=== PATIENT | female | born 1935 | race Caucasian/White ===

== ENCOUNTER 2019-04-11 13:09 | Emergency (ER) | payer MEDICARE ==
[~2019-04-11] VITALS: Ht 162.6 cm; Wt 45.9 kg
[2019-04-11 13:14] VITALS: BP 107/68
== END 2019-04-11 14:43 | disposition home or self-care (01) ==
LOC: ER 13:09
DX: L60.8 Other nail disorders (principal)
CPT/HCPCS: 99283

== ENCOUNTER 2019-11-28 09:23 | Emergency (ER) | payer MEDICARE ==
[~2019-11-28] VITALS: Ht 167.6 cm; Wt 47.7 kg
[2019-11-28] MEDS ORDERED: diazepam inj 5 MG/ML inj. IV ONE (09:35)
[2019-11-28 09:53] LABS: BASOPHILS % (AUTO) 0.5 % (0-1); EOSINOPHILS % (AUTO) 0.7 % (0-6); HEMOGLOBIN 13.5 g/dl (12.0-16.0); LYMPHOCYTES % (AUTO) 19.5 % (21-51); MEAN CORPUSCULAR HEMOGLOBIN 32.7 PG (27.0-31.0); MEAN CORPUSCULAR HGB CONC 33.7 g/dL (33.0-36.5); MEAN CORPUSCULAR VOLUME 97.2 FL (78-98); MEAN PLATELET VOLUME 7.7 FL (7.4-10.4); MONOCYTES # (AUTO) 0.5 X10'3 (0-0.9); MONOCYTES % (AUTO) 9.2 % (2-12); NEUTROPHILS # (AUTO) 3.5 X10'3 (1.8-7.7); NEUTROPHILS % (AUTO) 70.1 % (42-75); PLATELET COUNT 271 X10'3 (140-440); RED BLOOD COUNT 4.12 X10'6 (4.20-5.60); RED CELL DISTRIBUTION WIDTH 13.8 % (11.5-14.5); WHITE BLOOD COUNT 4.9 X10'3 (4.5-11.0)
[2019-11-28 10:08] LABS: ALANINE AMINOTRANSFERASE 29 U/L (12-78); ALBUMIN 3.7 G/DL (3.4-5.0); ALBUMIN/GLOBULIN RATIO 1.3 (1.1-1.5); ALKALINE PHOSPHATASE 37 IU/L (46-116); ANION GAP 10 (8-16); ASPARTATE AMINO TRANSFERASE 34 U/L (10-37); BILIRUBIN,TOTAL 0.6 MG/DL (0.1-1.0); BLOOD UREA NITROGEN 14 MG/DL (7-18); BUN/CREATININE RATIO 16.7 (6.6-38.0); CHLORIDE 108 MMOL/L (99-107); CREATININE 0.84 MG/DL (0.40-0.90); GLUCOSE 87 MG/DL (70-104); SODIUM 144 MMOL/L (135-145); TOTAL CARBON DIOXIDE 26.5 MMOL/L (24-32); TOTAL PROTEIN 6.5 G/DL (6.4-8.2); eGFR 65 ML/MIN
[2019-11-28 10:51] VITALS: BP 109/65
== END 2019-11-28 10:57 | disposition home or self-care (01) ==
LOC: ER 09:23
DX: R25.2 Cramp and spasm (principal); M54.81 Occipital neuralgia; F17.200 Nicotine dependence, unspecified, uncomplicated; Z85.841 Personal history of malignant neoplasm of brain; Z90.710 Acquired absence of both cervix and uterus
CPT/HCPCS: 36415; 80053; 85025; 96374; 99283; J3360; 99284

== ENCOUNTER 2021-02-22 09:38 | Emergency (ER) | payer MEDICARE ==
[~2021-02-22] VITALS: Ht 165.1 cm; Wt 46.6 kg
[2021-02-22] MEDS ORDERED: TETanus/Pertussis (Acell)/Diphther VAC/PF (Tdap-Adult) 0.5ml syringe IMVAC ONE (10:25)
[2021-02-22] MEDS ORDERED: LIDOcaine 1% W/epiNEPHrine 1:200,000 10ml vial IJ ONE (10:25)
--- NOTE | 2021-02-22 10:40 | NUR ---
To CT at this time via wheelchair.
[2021-02-22 11:57] VITALS: BP 120/87
== END 2021-02-22 12:02 | disposition home or self-care (01) ==
LOC: ER 09:39
DX: S01.81XA Laceration without foreign body of other part of head, initial encounter (principal); W22.8XXA Striking against or struck by other objects, initial encounter; Z91.81 History of falling; Y93.89 Activity, other specified; Y92.89 Other specified places as the place of occurrence of the external cause; Y99.8 Other external cause status; Z85.841 Personal history of malignant neoplasm of brain; Z90.710 Acquired absence of both cervix and uterus; Z88.1 Allergy status to other antibiotic agents; Z88.8 Allergy status to other drugs, medicaments and biological substances
CPT/HCPCS: 12013; 70450; 72125; 90471; 90715; 99285

== ENCOUNTER 2021-02-28 19:03 | Emergency (ER) | payer MEDICARE ==
[~2021-02-28] VITALS: Ht 162.6 cm; Wt 46.4 kg
[2021-02-28] MEDS ORDERED: metoclopramide 5 mg/ml inj IM ONE (22:50)
[2021-02-28] MEDS ORDERED: diphenhydrAMINE 25mg capsule PO ONE (22:50)
[2021-02-28] MEDS ORDERED: HYDROcodone/acetaminophen 5mg/325mg tablet PO ONE ×2 (23:25→23:35)
--- NOTE | 2021-02-28 23:36 | NUR ---
EVALUATED PT FROM [facility]; PT IN NAD WITH DAUGHTER AT SIDE; PT AOX4 IN NAD BUT DID HAVE FALL WITH LAC TO RIGHT FOREHEAD; GAVE INSTRUCTIONS ON MONITORING FOR S/SX OF ICP AND CHECKING NEURO STATUS; GAVE NORCO; REGLAN/BENADRYL WAS ORDERED BY MD FOR WRONG PT; DOES NOT APPLY FOR THIS PT; DC FROM [facility].
[2021-02-28 23:37] VITALS: BP 131/68
== END 2021-02-28 23:39 | disposition home or self-care (01) ==
LOC: ER 19:04
DX: F07.81 Postconcussional syndrome (principal); R41.0 Disorientation, unspecified; R53.83 Other fatigue; Z88.1 Allergy status to other antibiotic agents; Z88.8 Allergy status to other drugs, medicaments and biological substances; Z85.841 Personal history of malignant neoplasm of brain
CPT/HCPCS: 70450; 99284

== ENCOUNTER 2022-05-05 12:45 | Emergency (ER) | payer MEDICARE ==
[~2022-05-05] VITALS: Ht 165.1 cm; Wt 51.4 kg
[~2022-05-05 12:45] MED LIST: DONE10TA44 PO; LISI10TA27 PO; PANT-47 PO
[2022-05-05 12:54] VITALS: BP 121/69
== END 2022-05-05 15:32 | disposition home or self-care (01) ==
LOC: ER 12:46
DX: M79.671 Pain in right foot (principal); Z88.5 Allergy status to narcotic agent; Z88.8 Allergy status to other drugs, medicaments and biological substances; Z88.1 Allergy status to other antibiotic agents; Z79.899 Other long term (current) drug therapy
CPT/HCPCS: 73630; 99283

== ENCOUNTER 2023-02-17 16:52 | Emergency (ER) | payer MEDICARE ==
[~2023-02-17] VITALS: Ht 170.2 cm; Wt 50.5 kg
[2023-02-17 17:02] VITALS: TEMP 98.4
[2023-02-17] MEDS ORDERED: LIDOcaine 1% W/epiNEPHrine 1:100,000 20ml vial IJ ONE (17:05)
[2023-02-17] MEDS ORDERED: TETanus/Pertussis (Acell)/Diphther VAC/PF (Tdap-Adult) 0.5ml syringe IMVAC ONE (17:05)
[2023-02-17] MEDS ORDERED: bacitracin 15gm ointment TP ONE (17:05)
[2023-02-17] MEDS ORDERED: ondansetron 4mg rapidly disintigrating tab PO ONE (17:55)
[2023-02-17] MEDS ORDERED: morphine 2 MG/ML inj. syringe IM ONE (17:55)
[2023-02-17] MEDS ORDERED: morphine 4 MG/ML inj SYRINge IV ONE (18:20)
[2023-02-17] MEDS ORDERED: iohexol 300mg/ml 100ml inj. ONE (18:25)
[2023-02-17] MEDS ORDERED: acetaminophen 325mg tablet PO ONE (18:35)
[2023-02-17 18:49] VITALS: BP 116/69; PULSE 58; O2SAT 97
[2023-02-17] MEDS ORDERED: morphine 2 MG/ML inj. syringe IV ONE ×2 (19:00→19:01)
[2023-02-17 19:04] VITALS: RESP 18
[2023-02-17 19:30] LABS: BASOPHILS % (AUTO) 0.3 % (0-1); EOSINOPHILS % (AUTO) 0.1 % (0-6); HEMATOCRIT 39.5 % (35.0-45.0); HEMOGLOBIN 13.4 g/dl (12.0-16.0); LYMPHOCYTES # (AUTO) 1.1 X10'3 (1.1-4.8); LYMPHOCYTES % (AUTO) 10.7 % (21-51); MEAN CORPUSCULAR HEMOGLOBIN 32.9 PG (27.0-31.0); MEAN CORPUSCULAR HGB CONC 33.9 g/dL (33.0-36.5); MONOCYTES # (AUTO) 0.9 X10'3 (0-0.9); MONOCYTES % (AUTO) 8.9 % (2-12); NEUTROPHILS # (AUTO) 8.3 X10'3 (1.8-7.7); PLATELET COUNT 283 X10'3 (140-440); RED BLOOD COUNT 4.07 X10'6 (4.20-5.60); RED CELL DISTRIBUTION WIDTH 12.9 % (11.5-14.5); WHITE BLOOD COUNT 10.4 X10'3 (4.5-11.0)
[2023-02-17 19:37] LABS: ALANINE AMINOTRANSFERASE 14 U/L (12-78); ALBUMIN 3.6 G/DL (3.4-5.0); ALBUMIN/GLOBULIN RATIO 1.4 (1.1-1.5); ALKALINE PHOSPHATASE 49 IU/L (46-116); ANION GAP 9 (8-16); ASPARTATE AMINO TRANSFERASE 19 U/L (10-37); BILIRUBIN,TOTAL 0.6 MG/DL (0.1-1.0); BLOOD UREA NITROGEN 16 MG/DL (7-18); BUN/CREATININE RATIO 15.7 (10.0-20.0); CALCIUM 9.2 MG/DL (8.5-10.1); CHLORIDE 107 MMOL/L (99-107); CREATININE 1.02 MG/DL (0.40-0.90); GLUCOSE 99 MG/DL (70-104); LIPASE 242 U/L (73-393); SODIUM 142 MMOL/L (135-145); TOTAL PROTEIN 6.2 G/DL (6.4-8.2); eCRCL 32 ML/MIN; eGFR 51 ML/MIN
[2023-02-17 20:40] LABS: BILIRUBIN,URINE NEGATIVE (Neg); CLARITY,URINE SLIGHTLY CLOUDY (Clear); COLOR,URINE STRAW (Yellow); GLUCOSE, URINE NEGATIVE (Neg); KETONES,URINE TRACE mg/dl (Neg); LEUKOCYTE ESTERASE ,URINE SMALL (Neg); NITRITES, URINE NEGATIVE (Neg); OCCULT BLOOD,URINE NEGATIVE (Neg); PH,URINE 7.5 (4.8-8.0); PROTEIN,URINE NEGATIVE (Neg); UROBILINOGEN,URINE 0.2 E.U/dL (0.2-1.0)
[2023-02-17] MEDS ORDERED: ONDA4TAB12 PO (20:43)
[2023-02-17] MEDS ORDERED: HYDR-3965 PO (20:43)
[2023-02-17 20:55] LABS: UA COLLECTION TYPE OTHER
[2023-02-17 20:56] LABS: RBC,URINE NONE SEEN /HPF (0-2); SQUAMOUS EPITHELIAL CELL,UR NONE SEEN /LPF (FEW); WBC,URINE 0-4 /HPF (0-4)
[2023-02-17 20:57] LABS: BACTERIA,URINE FEW /HPF (Neg)
== END 2023-02-17 21:11 | disposition home or self-care (01) ==
LOC: ER 16:52
DX: S22.069A Unspecified fracture of T7-T8 vertebra, initial encounter for closed fracture (principal); S01.01XA Laceration without foreign body of scalp, initial encounter; Z88.5 Allergy status to narcotic agent; Z88.1 Allergy status to other antibiotic agents; Z88.8 Allergy status to other drugs, medicaments and biological substances; Z79.899 Other long term (current) drug therapy; Z90.710 Acquired absence of both cervix and uterus; W19.XXXA Unspecified fall, initial encounter; Y93.89 Activity, other specified; Y92.89 Other specified places as the place of occurrence of the external cause; Y99.8 Other external cause status
CPT/HCPCS: 12001; 36415; 70450; 71250; 72125; 72128; 74177; 80053; 81001; 83690; 85025; 87088; 90471; 90715; 96374; 99285; J2270; J3490; Q9967; A6449

== ENCOUNTER 2024-06-05 10:56 | Inpatient (IN) | payer MEDICARE ==
[~2024-06-05] VITALS: Ht 157.5 cm; Wt 49.4 kg
[~2024-06-05 10:56] MED LIST changes: +ACET500C5 PO; +ASCO-139 PO; +HYDR-3965 PO; -LISI10TA27 PO; +LOSA25TA41 PO; +MAGN400C PO; +MAGN400O6 PO; +OMEP40CA21 PO; +ONDA-243 PO; -PANT-47 PO
[2024-06-05 11:45] LABS: BASOPHILS % (AUTO) 0.2 % (0-1); EOSINOPHILS % (AUTO) 0.2 % (0-6); HEMATOCRIT 42.8 % (35.0-45.0); HEMOGLOBIN 14.5 g/dl (12.0-16.0); LYMPHOCYTES # (AUTO) 1.6 X10'3 (1.1-4.8); MEAN CORPUSCULAR HEMOGLOBIN 33.1 PG (27.0-31.0); MEAN CORPUSCULAR HGB CONC 33.9 g/dL (33.0-36.5); MEAN CORPUSCULAR VOLUME 97.7 FL (78-98); MEAN PLATELET VOLUME 7.9 FL (7.4-10.4); MONOCYTES # (AUTO) 0.7 X10'3 (0-0.9); MONOCYTES % (AUTO) 7.8 % (2-12); NEUTROPHILS # (AUTO) 6.3 X10'3 (1.8-7.7); NEUTROPHILS % (AUTO) 72.8 % (42-75); PLATELET COUNT 307 X10'3 (140-440); RED BLOOD COUNT 4.38 X10'6 (4.20-5.60); RED CELL DISTRIBUTION WIDTH 13.5 % (11.5-14.5); WHITE BLOOD COUNT 8.7 X10'3 (4.5-11.0)
[2024-06-05 11:51] LABS: BILIRUBIN,URINE NEGATIVE (Neg); CLARITY,URINE CLEAR (Clear); COLOR,URINE YELLOW (Yellow); GLUCOSE, URINE NEGATIVE (Neg); KETONES,URINE NEGATIVE (Neg); LEUKOCYTE ESTERASE ,URINE MODERATE (Neg); NITRITES, URINE NEGATIVE (Neg); OCCULT BLOOD,URINE NEGATIVE (Neg); PH,URINE 7.5 (4.8-8.0); PROTEIN,URINE NEGATIVE (Neg); UROBILINOGEN,URINE 0.2 E.U/dL (0.2-1.0)
[2024-06-05 11:56] LABS: UA COLLECTION TYPE NON-SPECIFIED
[2024-06-05] MEDS ORDERED: iohexol 300mg/ml 100ml inj. ONE (11:56)
[2024-06-05 11:58] LABS: BACTERIA,URINE FEW /HPF (Neg); MUCUS STRANDS NONE SEEN /LPF (Neg); RBC,URINE NONE SEEN /HPF (0-2); SQUAMOUS EPITHELIAL CELL,UR FEW /LPF (FEW); TRANSITIONAL EPI CELLS,URINE FEW /HPF; WBC,URINE 20-30 /HPF (0-4)
[2024-06-05 12:04] LABS: ALANINE AMINOTRANSFERASE 14 U/L (12-78); ALBUMIN 4.1 G/DL (3.4-5.0); ALBUMIN/GLOBULIN RATIO 1.4 (1.1-1.5); ALKALINE PHOSPHATASE 68 IU/L (46-116); ANION GAP 7 (8-16); ASPARTATE AMINO TRANSFERASE 16 U/L (10-37); BILIRUBIN,TOTAL 0.6 MG/DL (0.1-1.0); BLOOD UREA NITROGEN 12 MG/DL (7-18); BUN/CREATININE RATIO 11.4 (10.0-20.0); CALCIUM 9.6 MG/DL (8.5-10.1); CHLORIDE 104 MMOL/L (99-107); CREATININE 1.05 MG/DL (0.40-0.90); GLUCOSE 85 MG/DL (70-104); POTASSIUM 3.9 MMOL/L (3.5-5.1); SODIUM 141 MMOL/L (135-145); TOTAL CARBON DIOXIDE 29.6 MMOL/L (24-32); TOTAL PROTEIN 7.1 G/DL (6.4-8.2); eCRCL 29 ML/MIN; eGFR 49 ML/MIN
[2024-06-05] MEDS: cephalexin 250mg capsule PO ONE (12:33)
[2024-06-05] MEDS ORDERED: DONE10TA44 PO (13:19)
[2024-06-05] MEDS ORDERED: GLUC1TAB21 PO (13:19)
[2024-06-05] MEDS ORDERED: CETI10CA19 PO (13:19)
[2024-06-05] MEDS ORDERED: LACT1CAP65 PO (13:19)
[2024-06-05] MEDS ORDERED: CYAN1TAB65 (13:19)
[2024-06-05] MEDS ORDERED: IBUP1TAB11 PO (13:19)
[2024-06-05] MEDS ORDERED: ondansetron/PF 4mg/2ml inj IV PRN (13:45)
[2024-06-05] MEDS ORDERED: mag hydrox/Alum hydrox/simeth 30ml oral suspension PO PRN (13:45)
[2024-06-05] MEDS ORDERED: magnesium hydroxide 30ml (MOM) UD suspension PO PRN (13:45)
[2024-06-05] MEDS: CefTRIAXone 2gm/D5W 50ml BAG 50 ML IV ONE (14:21)
[2024-06-05] MEDS: normal saline 1000ml 1,000 ML IV SCH (14:21)
[2024-06-05 14:30] LABS: LIPASE 99 U/L (16-77)
[2024-06-05] MEDS: pantoprazole 40 MG vial IV ONE (15:02)
[2024-06-05] MEDS ORDERED: HYDROcodone/acetaminophen 5mg/325mg tablet PO PRN (16:50)
[2024-06-05] MEDS: HYDROcodone/acetaminophen 10/325mg tab PO PRN (16:54)
[2024-06-05 19:58] VITALS: BP 133/69; PULSE 64; RESP 16; TEMP 97.9; O2SAT 95
[2024-06-05 22:00] VITALS: BP 137/54; PULSE 68; RESP 18; TEMP 97.6; O2SAT 94
[2024-06-05] MEDS: docusate sod 100mg capsule PO SCH (22:09)
[2024-06-06 06:00] VITALS: BP 121/73; PULSE 60; RESP 16; TEMP 97.7; O2SAT 94
[2024-06-06] MEDS: CefTRIAXone 2gm/D5W 50ml BAG 50 ML IV SCH (07:05)
[2024-06-06] MEDS: pantoprazole 40 MG vial IV SCH (07:06)
[2024-06-06 07:25] LABS: BASOPHILS % (AUTO) 0.6 % (0-1); EOSINOPHILS % (AUTO) 0.4 % (0-6); HEMATOCRIT 39.5 % (35.0-45.0); HEMOGLOBIN 13.4 g/dl (12.0-16.0); LYMPHOCYTES # (AUTO) 1.2 X10'3 (1.1-4.8); LYMPHOCYTES % (AUTO) 22.6 % (21-51); MEAN CORPUSCULAR HEMOGLOBIN 32.9 PG (27.0-31.0); MEAN CORPUSCULAR HGB CONC 33.8 g/dL (33.0-36.5); MEAN CORPUSCULAR VOLUME 97.2 FL (78-98); MEAN PLATELET VOLUME 8.4 FL (7.4-10.4); MONOCYTES # (AUTO) 0.5 X10'3 (0-0.9); MONOCYTES % (AUTO) 9.7 % (2-12); NEUTROPHILS # (AUTO) 3.6 X10'3 (1.8-7.7); NEUTROPHILS % (AUTO) 66.7 % (42-75); PLATELET COUNT 276 X10'3 (140-440); RED BLOOD COUNT 4.06 X10'6 (4.20-5.60); RED CELL DISTRIBUTION WIDTH 13.1 % (11.5-14.5); WHITE BLOOD COUNT 5.4 X10'3 (4.5-11.0)
[2024-06-06 07:30] LABS: ALANINE AMINOTRANSFERASE 14 U/L (12-78); ALBUMIN 3.4 G/DL (3.4-5.0); ALBUMIN/GLOBULIN RATIO 1.3 (1.1-1.5); ALKALINE PHOSPHATASE 59 IU/L (46-116); ANION GAP 8 (8-16); ASPARTATE AMINO TRANSFERASE 14 U/L (10-37); BILIRUBIN,TOTAL 0.6 MG/DL (0.1-1.0); BLOOD UREA NITROGEN 12 MG/DL (7-18); BUN/CREATININE RATIO 12.9 (10.0-20.0); CALCIUM 8.6 MG/DL (8.5-10.1); CHLORIDE 108 MMOL/L (99-107); CREATININE 0.93 MG/DL (0.40-0.90); GLUCOSE 81 MG/DL (70-104); POTASSIUM 3.6 MMOL/L (3.5-5.1); SODIUM 142 MMOL/L (135-145); TOTAL CARBON DIOXIDE 26.2 MMOL/L (24-32); eCRCL 33 ML/MIN; eGFR 57 ML/MIN
[2024-06-06 08:00] VITALS: RESP 16; O2SAT 94
[2024-06-06 10:00] VITALS: BP 92/54; PULSE 70; RESP 14; TEMP 97.4; O2SAT 98
[2024-06-06] MEDS ORDERED: morphine 2 MG/ML inj. syringe IV PRN (10:30)
[2024-06-06 18:00] VITALS: BP 133/70; PULSE 66; RESP 16; TEMP 98.5; O2SAT 97
[2024-06-06] MEDS: sennosides/docusate sodium tablet PO SCH (19:36)
[2024-06-06 22:00] VITALS: BP 135/73; PULSE 63; RESP 16; TEMP 98.2; O2SAT 98
[2024-06-07] MEDS: morphine 2 MG/ML inj. syringe IV PRN (04:01)
[2024-06-07 06:00] VITALS: BP 140/75; PULSE 65; RESP 16; TEMP 97.6; O2SAT 98
[2024-06-07] MEDS ORDERED: CEFD300C3 PO (07:14)
[2024-06-07 07:28] LABS: BASOPHILS % (AUTO) 0.4 % (0-1); EOSINOPHILS % (AUTO) 0.2 % (0-6); HEMATOCRIT 37.7 % (35.0-45.0); LYMPHOCYTES # (AUTO) 1.2 X10'3 (1.1-4.8); LYMPHOCYTES % (AUTO) 22.4 % (21-51); MEAN CORPUSCULAR HEMOGLOBIN 33.3 PG (27.0-31.0); MEAN CORPUSCULAR HGB CONC 34.3 g/dL (33.0-36.5); MEAN PLATELET VOLUME 8.5 FL (7.4-10.4); MONOCYTES # (AUTO) 0.6 X10'3 (0-0.9); MONOCYTES % (AUTO) 10.6 % (2-12); NEUTROPHILS # (AUTO) 3.5 X10'3 (1.8-7.7); NEUTROPHILS % (AUTO) 66.4 % (42-75); PLATELET COUNT 265 X10'3 (140-440); RED BLOOD COUNT 3.89 X10'6 (4.20-5.60); RED CELL DISTRIBUTION WIDTH 13.2 % (11.5-14.5); WHITE BLOOD COUNT 5.3 X10'3 (4.5-11.0)
[2024-06-07 08:00] VITALS: RESP 16; O2SAT 98
[2024-06-07 08:20] LABS: ALANINE AMINOTRANSFERASE 11 U/L (12-78); ALBUMIN 3.3 G/DL (3.4-5.0); ALBUMIN/GLOBULIN RATIO 1.4 (1.1-1.5); ALKALINE PHOSPHATASE 53 IU/L (46-116); ANION GAP 9 (8-16); ASPARTATE AMINO TRANSFERASE 25 U/L (10-37); BILIRUBIN,TOTAL 0.7 MG/DL (0.1-1.0); BLOOD UREA NITROGEN 9 MG/DL (7-18); BUN/CREATININE RATIO 10.2 (10.0-20.0); CALCIUM 8.6 MG/DL (8.5-10.1); CHLORIDE 109 MMOL/L (99-107); CREATININE 0.88 MG/DL (0.40-0.90); GLUCOSE 80 MG/DL (70-104); POTASSIUM 3.8 MMOL/L (3.5-5.1); SODIUM 143 MMOL/L (135-145); TOTAL CARBON DIOXIDE 25.5 MMOL/L (24-32); TOTAL PROTEIN 5.6 G/DL (6.4-8.2); eCRCL 34 ML/MIN; eGFR 61 ML/MIN
[2024-06-07 08:56] VITALS: RESP 16
[2024-06-07] MEDS: acetaminophen 325mg tablet PO PRN (13:19)
[2024-06-11] MEDS ORDERED: GABA-530 PO (14:09)
== END 2024-06-07 14:30 | disposition home or self-care (01) | DRG 689 ==
LOC: ER 10:57 → UNDOADMIN 13:47 → ED HOLD 13:47 → ORTHO 4S 19:37
PROVIDERS: ADMIT Nurse Practitioner Family; ATTEND Nurse Practitioner Family
PROC: BW211ZZ Computerized Tomography (CT Scan) of Abdomen and Pelvis using Low Osmolar Contrast (ICD-10-PCS; principal; 2024-06-05)
DX: N39.0 Urinary tract infection, site not specified (principal); G93.41 Metabolic encephalopathy; K86.2 Cyst of pancreas; Z20.822 Contact with and (suspected) exposure to COVID-19; G89.29 Other chronic pain; Z66 Do not resuscitate; E03.9 Hypothyroidism, unspecified; F03.90 Unspecified dementia, unspecified severity, without behavioral disturbance, psychotic disturbance, mood disturbance, and anxiety; Z88.1 Allergy status to other antibiotic agents; Z88.5 Allergy status to narcotic agent; Z88.8 Allergy status to other drugs, medicaments and biological substances; Z79.899 Other long term (current) drug therapy; Z90.710 Acquired absence of both cervix and uterus; Z85.3 Personal history of malignant neoplasm of breast
CPT/HCPCS: 36415; 74177; 74181; 80053; 81001; 83690; 84145; 84484; 85025; 87077; 87081; 87088; 87186; 87811; 97110; 97116; 97161; 99285; A6258; G0378; J0696; J2270; J2470; J7030; Q9967

== ENCOUNTER 2024-06-28 11:32 | Emergency (ER) | payer MEDICARE ==
[~2024-06-28] VITALS: Ht 165.1 cm; Wt 46.0 kg
[~2024-06-28 11:32] MED LIST changes: +CEFD300C3 PO; +CYAN1TAB65; +GABA-530 PO; +GLUC1TAB21 PO; +LACT1CAP65 PO; -ONDA-243 PO
[2024-06-28 11:43] VITALS: TEMP 98
[2024-06-28 14:06] VITALS: BP 118/72; PULSE 58; RESP 14; O2SAT 95
== END 2024-06-28 14:40 | disposition home or self-care (01) ==
LOC: ER 11:32
DX: M54.12 Radiculopathy, cervical region (principal); F03.90 Unspecified dementia, unspecified severity, without behavioral disturbance, psychotic disturbance, mood disturbance, and anxiety; G89.29 Other chronic pain; Z88.1 Allergy status to other antibiotic agents; Z88.5 Allergy status to narcotic agent; Z88.8 Allergy status to other drugs, medicaments and biological substances; Z88.6 Allergy status to analgesic agent; Z90.710 Acquired absence of both cervix and uterus; Z85.3 Personal history of malignant neoplasm of breast; Z79.899 Other long term (current) drug therapy; Z72.89 Other problems related to lifestyle
CPT/HCPCS: 72125; 99284